=== PATIENT | male | born 1965 | race Caucasian/White ===

== ENCOUNTER 2018-10-20 19:08 | Emergency (ER) | payer MEDICAID, OTHER ==
[2018-10-20] MEDS: KETOROLAC 15 MG INJ IM (23:04)
== END 2018-10-21 00:32 | disposition home or self-care (01) ==
LOC: FTE 19:08
DX: J40 Bronchitis, not specified as acute or chronic (principal); I10 Essential (primary) hypertension
CPT/HCPCS: 71045; 82962; 96372; 99284-25